=== PATIENT | male | born 1965 | race Caucasian/White ===

== ENCOUNTER 2018-01-26 17:42 | Emergency (ER) | payer BC ==
--- NOTE | 2018-01-26 19:18 | UC ---
Throat Pain/Nasal Leonidas HPI <Victor Hugo Dolan - Last Filed: 01/27/18 19:06> - HPI Summary HPI Summary: 52 y/o male presents to the urgent care c/o left side of neck w/ swollen gland for the past week. He also noticed a swollen gland in his left axilla that is bigger, but not painful. He is not sure how long it has been there. Pt reports he had a root canal work done in 10/2017 and then he developed like a common cold. He remembered his neck was swollen for 3 days. He denies fever, sore throat, URI, ear pain, GUTIERREZ, losing weight, SOB, cough, chest pain, abdominal pain , N/V/D, Hx of STD's, recent travel outside the country. Pt has not taking anything to alleviate symptoms. - History of Current Complaint Hx Obtained From: Patient Onset/Duration: Gradual Onset, Lasting Weeks - 1 week, Still Present Severity: Mild Pain Intensity: 1 Pain Scale Used: 0-10 Numeric Cough: None Associated Signs & Symptoms: Positive: Negative. Negative: Fever - Epiglottits Risk Factors Epiglottis Risk Factors: Negative <Lashawn Hall - Last Filed: 01/28/18 03:08> - History of Current Complaint Chief Complaint: UCGeneralIllness Stated Complaint: NECK SWELLING Time Seen by Provider: 01/26/18 19:17 - Allergies/Home Medications Allergies/Adverse Reactions: Allergies Allergy/AdvReac Type Severity Reaction Status Date / Time No Known Allergies Allergy Verified 01/26/18 18:23 Home Medications: Home Medications NK [No Home Medications Reported] 01/26/18 [History Confirmed 01/26/18] PMH/Surg Hx/FS Hx/Imm Hx Previously Healthy: Yes - Pt denies PMHX - Surgical History Surgical History: None - Family History Known Family History: Positive: Diabetes Family History: breast cancer, kidney stones - Social History Occupation: Employed Full-time Lives: With Family Alcohol Use: Rare Substance Use Type: None Smoking Status (MU): Never Smoked Tobacco <Lashawn Hall - Last Filed: 01/28/18 03:08> Review of Systems Constitutional: Negative Skin: Negative Eyes: Negative ENT: Other - left swollen glands in his neck and left axillary nodule Respiratory: Negative Cardiovascular: Negative Gastrointestinal: Negative Genitourinary: Negative Motor: Negative Neurovascular: Negative Musculoskeletal: Negative Neurological: Negative Psychological: Negative Is Patient Immunocompromised?: No All Other Systems Reviewed And Are Negative: Yes <Lashawn Hall - Last Filed: 01/28/18 03:08> Physical Exam Vital Signs: Initial Vital Signs Temp 98.4 F 01/26/18 18:23 Pulse 71 01/26/18 18:23 Resp 16 01/26/18 18:23 BP 126/78 01/26/18 18:23 Pulse Ox 98 01/26/18 18:23 <KelsiVictor Hugo Haynes - Last Filed: 01/27/18 19:06> - Summary Physical Exam Summary: VITAL SIGNS: Reviewed. GENERAL: Patient is a well developed and nourished male who is sitting comfortable in the examining table. Patient is not in any acute respiratory distress. HEAD AND FACE: No signs of trauma. No ecchymosis, hematomas or skull depressions. No sinus tenderness. EYES: PERRLA, EOMI x 2, No injected conjunctiva, no nystagmus. No photophobia. EARS: Hearing grossly intact. Ear canals and tympanic membranes are within normal limits. MOUTH: Positive pharynx with mild erythema, no exudates, no palatal petechiae. NO B/L tonsillar enlargement . Uvula in midline. NECK: Supple, trachea is midline, Positive left side anterior and posterior cervical lymphadenopathy , no JVD, no carotid bruit, no c-spine tenderness, neck with full ROM. No meningeal signs, no Kernig's or brudzinskis signs. Also left axilla w/ a large lymph node about the size of a golf ball, movable, non tender to palpation, no erythema observed. CHEST: Symmetric, no tenderness at palpation LUNGS: Clear to auscultation bilaterally. No wheezing or crackles. CVS: Regular rate and rhythm, S1 and S2 present, no murmurs or gallops appreciated. ABDOMEN: Soft, non-tender. No signs of distention. No rebound no guarding, and no masses palpated. Bowel sounds are normal. EXTREMITIES: FROM in all major joints, no edema, no cyanosis or clubbing. NEURO: Alert and oriented x 3. No acute neurological deficits. Speech is normal and follows commands. SKIN: Dry and warm Triage Information Reviewed: Yes Vital Signs: Initial Vital Signs Temp 98.4 F 01/26/18 18:23 Pulse 71 01/26/18 18:23 Resp 16 01/26/18 18:23 BP 126/78 01/26/18 18:23 Pulse Ox 98 01/26/18 18:23 <Lashawn Hall - Last Filed: 01/28/18 03:08> Throat Pain/Nasal Course/Dx - Course Course Of Treatment: 52 y/o male presents to the urgent care c/o left side of neck w/ swollen gland for the past week. He also noticed a swollen gland in his left axilla that is bigger, but not painful. He is not sure how long it has been there. Pt reports he had a root canal work done in 10/2017 and then he developed like a common cold. He remembered his neck was swollen for 3 days. He denies fever, sore throat, URI, ear pain, GUTIERREZ, losing weight, SOB, cough, chest pain, abdominal pain, N/V/D, Hx of STD's, recent travel outside the country. Pt has not taking anything to alleviate symptoms. Hx obtained.Pt w/ a Positive left side anterior and posterior cervical lymphadenopathy no c-spine tenderness, neck with full ROM. and left axilla w/ a large lymph node about the size of a golf ball, movable, non tender to palpation, no erythema observed on examination. Pt w/ probably Lymphadenopathy, rapid strep ordered: negative. Pt's symptoms discussed w/ DR Dolan. He evaluated Pt and agreed Pt's has a lymphadenopathy.He recommended blood work: CBC, CMP, [place] spot, CMV, CRP. Pt declined HIV testing. Labs ordered. Chest X-ray ordered, Impression: No cardiopulmonary disease observed. Pt educated on lymphadenopathy. Pt will be notified of lab results. Pt w/o PCP. [place] [facility] make appt w/ a PCP for further management. Pt also given Referral w/ Oncologist DR Laguna and Pt strongly advised to f/u w/ him as soon as possible if labs return abnormal. Pt understood and agreed w/ plan of care. Pt left the clinic hemodynamically stable. - Differential Dx/Diagnosis Differential Diagnosis/HQI/PQRI: Influenza, Laryngitis, Mononucleosis, Peritonsillar Abscess, Pharyngitis, Tonsillitis, Other - lymphadenopathy Provider Diagnoses: 1- Lymphadenopathy <Lashawn Hall - Last Filed: 01/28/18 03:08> Discharge - Billing Disposition and Condition Condition: STABLE Disposition: HOME <KelsiVictor Hugo Dallas - Last Filed: 01/27/18 19:06> - Sign-Out/Discharge Documenting (check all that apply): Discharge/Admit/Transfer - Billing Disposition and Condition Condition: STABLE Disposition: HOME <Lashawn Hall - Last Filed: 01/28/18 03:08> - Discharge Plan Condition: Stable Disposition: HOME Patient Education Materials: Lymphadenopathy (ED) [place]errals: [facility]Outside] - 2 Days Guru Laguna MD [Medical Doctor] - If Needed Additional Instructions: 1- Chest x-ray is negative 2- Blood work was sent to [facility] to r/o any abnormality. You will be notified of any abnormal result 3- Please make an appt w/ a PCP form the [facility] [place] for further management on your Lympadenopathy. 4-Take Tylenol PO or Ibuprofen PO q6-8hrs for pain and swelling. 5-F/u w/ Oncologist DR Laguna if all test are negative for further evaluation and treatment
--- NOTE | 2018-01-26 20:31 | RAD ---
Indication: Lymphadenopathy. 2 views of the chest demonstrate no mediastinal shift. Heart is of normal size and configuration. Lungs are clear. IMPRESSION: No active cardiopulmonary disease is noted.
[2018-01-26 21:00] VITALS: BP 108/73
[2018-01-27 10:34] LABS: Hematocrit 43 % (42-52); Hemoglobin 14.4 g/dl (14.0-18.0); Mean Corpuscular HGB Conc 33 g/dl (31-36); Mean Corpuscular Hemoglobin 29 pg (27-31); Mean Corpuscular Volume 88 fL (80-94); Mean Platelet Volume 9.9 um3 (7.4-10.4); Platelet Count 131 10^3/ul (150-450); Red Blood Count 4.95 10^6/ul (4.0-5.4); Red Cell Distribution Width 13 % (10.5-15); White Blood Count 40.4 10^3/ul (3.5-10.8)
[2018-01-27 10:46] LABS: EGFR Non-African American 72.6 (>60)
[2018-01-27 11:18] LABS: ABS Basophils 0.2 10^3/ul (0-0.2); ABS Eosinophils 0.3 10^3/ul (0-0.6); ABS Lymphocytes 33.3 10^3/ul (1.0-4.8); ABS Monocytes 1.1 10^3/ul (0-0.8); ABS Neutrophils 5.5 10^3/ul (1.5-7.7); ABS Nucleated RBC 0.1 10^3/ul; Eosinophil % 0.8 % (0-6); Lymphocyte % 82.4 % (25-47); Nucleated Red Blood Cells % 0.3
--- NOTE | 2018-01-27 19:14 | UC ---
- Progress Note Progress Note: Pt called rodrigo re WBC count I informed him he may have CLL Advised him to call Dr. Laguna in AM for f/u appt Discharge - Sign-Out/Discharge Documenting (check all that apply): Post-Discharge Follow Up - Discharge Plan Condition: Stable Disposition: HOME Patient Education Materials: Lymphadenopathy (ED) Referrals: [facility] [place]FERR[place] [Outside] - 2 Days Guru Laguna MD [Medical Doctor] - If Needed Additional Instructions: 1- Chest x-ray is negative 2- Blood work was sent to al to r/o any abnormality. You will be notified of any abnormal result 3- Please make an appt w/ a PCP form the [facility] [place] network for further management on your Lympadenopathy. 4-Take Tylenol PO or Ibuprofen PO q6-8hrs for pain and swelling. 5-F/u w/ Oncologist DR Laguna if all test are negative for further evaluation and treatment - Billing Disposition and Condition Condition: STABLE Disposition: HOME
--- NOTE | 2018-01-28 11:28 | UC ---
- Progress Note Progress Note: I contacted Mr Orourke over his cell phone in regards to his f/u appt w/ Oncologist Dr Laguna. He stated he has an appt tomorrow morning 01/29/2018 w/ Dr Laguna's partner DR Vigil for further management on his Lympadenopathy abnormal WBC to r/o CLL. Lashawn Hall PA-C Discharge - Sign-Out/Discharge Documenting (check all that apply): Discharge/Admit/Transfer - Discharge Plan Condition: Stable Disposition: HOME Patient Education Materials: Lymphadenopathy (ED) Referrals: [facility] [place] [Outside] - 2 Days Guru Laguna MD [Medical Doctor] - If Needed Additional Instructions: 1- Chest x-ray is negative 2- Blood work was sent to [facility] to r/o any abnormality. You will be notified of any abnormal result 3- Please make an appt w/ a PCP form the [facility] [place] network for further management on your Lympadenopathy. 4-Take Tylenol PO or Ibuprofen PO q6-8hrs for pain and swelling. 5-F/u w/ Oncologist DR Laguna if all test are negative for further evaluation and treatment - Billing Disposition and Condition Condition: STABLE Disposition: HOME
== END 2018-01-26 20:59 | disposition home or self-care (01) ==
LOC: UCCORT 17:42
DX: R22.1 Localized swelling, mass and lump, neck (principal)
CPT/HCPCS: 36415; 71046; 80053; 85025; 85060; 86140; 86308; 87497; 99212; G0463

== ENCOUNTER 2019-03-05 10:02 | Emergency (ER) | payer BC ==
[2019-03-05 10:23] VITALS: BP 118/79
[2019-03-05] MEDS ORDERED: Fluorescein Sodium TOPICAL* 1 MG TEST STRIP OPHTHALMIC ONE (11:08)
[2019-03-05] MEDS ORDERED: Tetracaine 0.5% OPTH.SOL 4 ML* 1 DROP BTL RIGHT EYE ONE (11:16)
--- NOTE | 2019-03-05 11:29 | UC ---
Eye Complaint HPI - HPI Summary HPI Summary: Pt is 53 y/o male with medial right eye redness x 1 week. Notes increased tearing, photosensitivity, blurry vision of right eye, mild intermittent headache superior to right eyebrow. Denies eye pain, flashers, floaters, headaches. Recalls getting hit in his right eye by a tree branch two weeks ago. He has intermittent foreign body sensation. Being treated by Dr. Aparicio for cancer currently; he spoke with on-call physician about current symptoms who confirmed there are no eye side-effects consistent with his current sx with his medications. No other complaints at this time. - History of Current Complaint Chief Complaint: UCEye Stated Complaint: EYE COMPLAINT Hx Obtained From: Patient Onset/Duration: Sudden Onset Timing: Hours Severity Initially: Mild Severity Currently: Mild Pain Intensity: 1 Pain Scale Used: 0-10 Numeric Location of Injury: Conjunctiva Character: Foreign Body Sensation - intermittently Aggravating Factor(s): Light Alleviating Factor(s): Darkness Associated Signs And Symptoms: Positive: Drainage (Clear), Vision Impairment Right - blurry vision - Allergies/Home Medications Allergies/Adverse Reactions: Allergies Allergy/AdvReac Type Severity Reaction Status Date / Time No Known Allergies Allergy Verified 03/05/19 10:23 Home Medications: Home Medications Allopurinol TAB* [Zyloprim 300 MG TAB*] 300 mg PO DAILY 03/05/19 [History Confirmed 03/05/19] Ibrutinib [Imbruvica] 420 mg PO 03/05/19 [History] riTUXimab* [RiTUXan*] 500 mg IV 03/05/19 [History] PMH/Surg Hx/FS Hx/Imm Hx Previously Healthy: No Cancer History: Other - Surgical History Surgical History: None - Family History Known Family History: Positive: Diabetes Family History: breast cancer, kidney stones - Social History Alcohol Use: Rare Substance Use Type: None Smoking Status (MU): Never Smoked Tobacco Review of Systems All Other Systems Reviewed And Are Negative: Yes Constitutional: Negative: Fever Eyes: Positive: Blurred Vision - Right eye, Drainage - Clear, right eye, Eye Redness - Medial right eye, Other - Denies eye pain.. Negative: Diplopia Neurological: Positive: Headache - Mild, intermittent, right frontal. Negative : Weakness, Paresthesia, Numbness Is Patient Immunocompromised?: Yes Physical Exam Triage Information Reviewed: Yes Appearance: Well-Appearing, No Pain Distress Vital Signs: Initial Vital Signs Temp 97.7 F 03/05/19 10:18 Pulse 70 03/05/19 10:18 Resp 18 03/05/19 10:18 BP 118/79 03/05/19 10:18 Pulse Ox 100 03/05/19 10:18 Vital Signs Reviewed: Yes Eyes: Positive: Other: - EOMI. PERRLA. Right eye with conjunctival erythema and inflammation of medial canthus to medial edge of iris. Pinpoint black dot at right edge of iris border. No hemorrhage. Starr lamp with fluorescein revealed uptake surrounding black dot, consistent with foreign body. Eyelids everted, no foreign body visualized. ENT: Positive: Normal ENT inspection Neck exam: Normal Respiratory Exam: Normal Respiratory: Positive: Lungs clear Cardiovascular: Positive: RRR, No Murmur Musculoskeletal Exam: Normal Neurological Exam: Normal Neurological: Positive: Alert Psychological Exam: Normal Skin Exam: Normal Procedures - Procedure Summary Procedure Summary: Foreign body removal R eye: Tetracaine and fluorescein administered to right eye. Tiny uptake near FB at 2 o'clock extreme medial edge of cornea. Blunt end needle used to remove portion of foreign body. Some remainder removed with flush and moistened swab. Portion of FB remains. Patient tolerated well. No complications. Eye Complaint Course/Dx - Course Course Of Treatment: 53 y/o male foreign body right eye edge of right iris border after hit in eye with tree branch x 2 weeks. Foreign body removal was partially successful. A deeper portion of the foreign body remains in his eye. D/c home with antibiotic ointment, antibiotic drops, and instructed to follow up with ophthalmology and PCP Patient seen in collaboration with the physician bindery assistant student. Portion of the foreign body was removed. I will soften it with topical erythromycin ointment. Cipro eyedrops also given as patient has cancer history on chemotherapeutic agents. Follow-up options so on Thursday. May need lashae. - Differential Dx/Diagnosis Differential Diagnosis/HQI/PQRI: Conjunctivitis, Corneal Abrasion, Foreign Body Provider Diagnosis: Conjunctivitis, right eye Discharge - Sign-Out/Discharge Documenting (check all that apply): Patient Departure All imaging exams completed and their final reports reviewed: Yes - Discharge Plan Condition: Improved Disposition: HOME Prescriptions: Ciprofloxacin 0.3% OPTH.JACKY* [Cipro 0.3% Opth*] 2 drop RIGHT EYE Q4H #1 btl Erythromycin OPTH OINT* [Erythromycin 0.5% OPTH OINT*] 1 applic RIGHT EYE TID 3 Days #1 ophth.oint Patient Education Materials: Eye Foreign Body (ED) Referrals: No Primary Care Phys,NOPCP [Primary Care Provider] - Aramis Langston MD [Medical Doctor] - Additional Instructions: Return with eye pain, increased redness, increased sensitivity and light, worse or other concerns. - Billing Disposition and Condition Condition: IMPROVED Disposition: Home - Attestation Statements Document Initiated by Scribe: Yes Documenting Scribe: JORDAN Farris Provider For Whom Scribe is Documenting (Include Credential): Dr. Romero Scribe Attestation: Salvatore Kwon PA-S, scribed for Dr. Romero on 03/05/19 at 1158. Scribe Documentation Reviewed: Yes Provider Attestation: The documentation as recorded by the jamesibSalvatore suarez PA-S accurately reflects the service I personally performed and the decisions made by Dr. Nick buchanan Status of Scribe Document: Viewed
== END 2019-03-05 11:40 | disposition home or self-care (01) ==
LOC: UCEAST 10:02
DX: H10.9 Unspecified conjunctivitis (principal)
CPT/HCPCS: 99212; A9270-GY; G0463

== ENCOUNTER 2019-06-29 07:30 | Emergency (ER) | payer BC ==
[2019-06-29 07:42] VITALS: BP 150/84
[2019-06-29] MEDS ORDERED: Fluorescein Sodium TOPICAL* 1 MG TEST STRIP OPHTHALMIC ONE (07:51)
--- NOTE | 2019-06-29 12:01 | UC ---
Eye Complaint HPI - HPI Summary HPI Summary: WAS DOING SOME WORK OUTSIDE A FEW DAYS AGO WHEN HE GOT STUNG BY SOME WASPS IN THE FACE. LATER IN THE DAY HE NOTICED HIS LEFT EYE WAS IRRITATED AND RED WHICH HE ATTRIBUTED TO THE STINGS. SINCE THE SWELLING HAS SUBSIDED HE NOTED THAT HIS LEFT EYE WAS STILL RED AND IRRITATED WITH SOME CLEAR DRAINAGE AND CRUSTING IN THE MORNINGS. HAS FOREIGN BODY SENSATION. FEELS A LITTLE BETTER AFTER FLUSHING HIS EYE YESTERDAY. NO VISUAL DISTURBANCES. . - History of Current Complaint Chief Complaint: UCEye Stated Complaint: EYE COMPLAINT Time Seen by Provider: 06/29/19 07:50 Hx Obtained From: Patient Onset/Duration: Sudden Onset, Lasting Days, Still Present Timing: Constant Severity Initially: Moderate Severity Currently: Moderate Pain Intensity: 3 Pain Scale Used: 0-10 Numeric Character: Foreign Body Sensation Aggravating Factor(s): Blinking Alleviating Factor(s): Nothing Associated Signs And Symptoms: Positive: Drainage (Clear). Negative: Photophobia, Vision Impairment Bilateral - Allergies/Home Medications Allergies/Adverse Reactions: Allergies Allergy/AdvReac Type Severity Reaction Status Date / Time No Known Allergies Allergy Verified 06/29/19 07:42 Home Medications: Home Medications Dm/PE/Acetaminophen/Doxylamine [Vicks Dayquil-Nyquil Cold-Flu] 1 dose PO ONCE PRN 06/29/19 [History Confirmed 06/29/19] Multivitamin [Multivitamins] 1 tab PO DAILY 06/29/19 [History Confirmed 06/29/19 ] PMH/Surg Hx/FS Hx/Imm Hx Other Cancer History: CLL - Surgical History Surgical History: None - Family History Known Family History: Positive: Diabetes Family History: breast cancer, kidney stones - Social History Alcohol Use: None Substance Use Type: None Smoking Status (MU): Never Smoked Tobacco Review of Systems All Other Systems Reviewed And Are Negative: Yes Constitutional: Positive: Negative Eyes: Positive: Drainage, Eye Redness. Negative: Blurred Vision Respiratory: Positive: Negative Cardiovascular: Positive: Negative Gastrointestinal: Positive: Negative Physical Exam Triage Information Reviewed: Yes Appearance: Well-Appearing, No Pain Distress, Well-Nourished Vital Signs: Initial Vital Signs Temp 97.3 F 06/29/19 07:36 Pulse 68 06/29/19 07:36 Resp 18 06/29/19 07:36 BP 150/84 06/29/19 07:36 Pulse Ox 98 06/29/19 07:36 Vital Signs Reviewed: Yes Eyes: Positive: Conjunctiva Inflamed - LEFT EYE, Discharge - LEFT EYE, Other: - PERRL, EOMI. FLUORESCEIN UPTAKE IN A VERTICAL STREAK ACROSS LEFT EYE UPPER OUTER BULBAR CONJUNCTIVA ENT: Positive: Hearing grossly normal Neck: Positive: Supple Respiratory: Positive: No respiratory distress, No accessory muscle use Cardiovascular: Positive: Pulses Normal Abdomen Description: Positive: Soft Musculoskeletal: Positive: No Edema Neurological: Positive: Alert Psychological: Negative: Age Appropriate Behavior Skin: Negative: Rashes Eye Complaint Course/Dx - Course Course Of Treatment: PATIENT WITH CONJUNCTIVAL ABRASION LEFT UPPER OUTER EYE. DISCUSSED EYE DROPS VERSUS OINTMENT. PATIENTS PAIN IS MINIMAL AND HE IS CONCERNED ABOUT HIS DAILY ACTIVITIES WITH THE VISUAL DISTURBANCES THAT COME WITH OINTMENT IN THE EYE. WILL GO AHEAD AND USE DROPS. ADVISED FOLLOW-UP WITH SUPERVISORY HISTORIAN IF HIS SYMPTOMS DO NOT COMPLETELY RESOLVE AFTER 5 DAYS. - Differential Dx/Diagnosis Provider Diagnosis: Conjunctival abrasion Discharge ED - Sign-Out/Discharge Documenting (check all that apply): Patient Departure All imaging exams completed and their final reports reviewed: No Studies - Discharge Plan Condition: Stable Disposition: HOME Prescriptions: Ciprofloxacin 0.3% OPTH.JACKY* [Cipro 0.3% Opth*] 1 drop LEFT EYE Q4H #1 btl Referrals: Aramis Langston MD [Medical Doctor] - If Needed Additional Instructions: YOU HAVE A SCRATCH ON THE UPPER OUTER PART OF YOUR EYE. USE THE DROPS EVERY 4 HOURS WHILE AWAKE FOR THE NEXT 7 DAYS. FOLLOW-UP WITH YOUR SUPERVISORY HISTORIAN IN YOUR SYMPTOMS ARE NOT 100% IMPROVED WITH THIS TREATMENT. CONJUNCTIVAL ABRASION Conjunctival abrasions occur from blunt injuries and mild chemical or thermal castillo and present as an irregularity of the epithelial surface of the conjunctiva, best seen using fluorescein stain and a cobalt blue light. Regions of denuded epithelium will appear green. Corneal abrasions are also frequently present. Isolated conjunctival abrasions are treated with antibiotic ointment applied four times daily for one week. Referral to an executive vice president for a complete eye examination within one to three days of injury is a reasonable precaution in these patients if all symptoms have not resolved and in contact wearers. These injuries typically heal within two to three days. Patients with an isolated conjunctival injury typically recover fully without any vision loss Don't drive or operate machinery until you have the use of both your eyes. The abrasion usually is healed in one or two days. A follow-up examination to confirm healing is recommended. Call the doctor or return at once if you develop severe pain, decreasing vision, eye swelling, or purulent drainage. - Billing Disposition and Condition Condition: STABLE Disposition: Home
== END 2019-06-29 08:56 | disposition home or self-care (01) ==
LOC: UCEAST 07:30
DX: S00.272A Other superficial bite of left eyelid and periocular area, initial encounter (principal); Y92.9 Unspecified place or not applicable; Z85.6 Personal history of leukemia
CPT/HCPCS: 99212; A9270-GY; G0463